=== PATIENT | male | born 1985 | race Caucasian/White ===

== ENCOUNTER 2021-09-21 09:08 | Emergency (ER) | payer OTHER, SELFPAY ==
[2021-09-21] VITALS (13 sets, daily range): BP systolic 103–137; BP diastolic 64–119; PULSE 74–96; RESP 14–31; TEMP 36.2; O2SAT 96–99
--- NOTE | ~2021-09-21 | XR_ITS ---
EXAMINATION: XR chest 2V DATE: 09/21/2021 09:54 INDICATION: Dizziness. TECHNIQUE: Frontal and lateral views of the chest were obtained. COMPARISON: Chest single view 06/24/2021 FINDINGS: The chest demonstrates clear lungs without pneumonia, pleural effusion, or pneumothorax. Th e heart size is normal. IMPRESSION: 1. No acute cardiopulmonary disease. Reviewed, dictated and finalized at location A. [employer]ENT[employer]
--- NOTE | 2021-09-21 09:17 | ECG_ITS ---
Measurements Intervals [place] Rate: 84 P: 31 LA: 145 QRS: 2 QRSD: 97 T: 1 QT: 365 QTc: 432 Interpretive Statements SINUS RHYTHM NO PREVIOUS ECG AVAILABLE FOR COMPARISON Electronically Signed On 09-21-2021 13:20:53 [employer] SAL[employer] by Susana Huerta M.D.
[2021-09-21 09:27] LABS: Basophils Absolute Auto 0.1 K/mm3 (0.0-0.1); Eosinophils Absolute Auto 0.4 K/mm3 (0-0.3); Eosinophils Percent Auto 4.7 % (0-4.4); Hemoglobin 14.5 g/dL (14.0-18.0); Immature Granulocyte Absolute 0.05 K/mm3 (0.00-0.031); Immature Granulocyte Percent A 0.5 % (0-0.5); Lymphocytes Absolute Auto 1.51 K/mm3 (0.9-3.2); Lymphocytes Percent Auto 16.1 % (18.3-44.2); Mean Corpuscular Hemoglobin 29.6 pg (26-34); Mean Corpuscular Volume 89.8 fl (80-100); Mean Platelet Volume 9.7 fl (7.4-10.4); Monocytes Absolute Auto 0.8 K/mm3 (0.1-0.6); Monocytes Percent Auto 8.9 % (2.6-8.5); Neutrophils Absolute Auto 6.4 K/mm3 (1.3-6.7); Neutrophils Percent Auto 68.8 % (45.5-73.1); Platelet Count Result 344 k/mm3 (150-375); Red Cell Distribution Width 12.7 % (11.5-14.5); White Blood Count 9.4 K/mm3 (4.5-10.0)
--- NOTE | 2021-09-21 09:29 | ED.DIZZY ---
HPI - Dizziness General Chief Complaint: Dizziness Stated Complaint: vertigo Time Seen by Provider: 09/21/21 09:11 Source: patient Mode of arrival: ambulatory Limitations: no limitations History of Present Illness HPI Narrative: This is a 36-year-old male that presents to the emergency department for intermittent episodes of dizziness today. Reports he feels very lightheaded like he could pass out. Associated with nausea and diaphoresis. Nothing seems to make the symptoms better or worse. He feels like his heart is racing when this happens. He does report similar episodes in the past. He has not taken anything for symptoms. Denies fever, chest pain, shortness of breath, vision changes, vomiting, numbness, or weakness. Related Data Home Medications Medication Instructions Recorded Confirmed fexofenadine [Felipa Allergy] 180 mg PO DAILY 06/18/19 06/18/19 fluoxetine [Prozac] 20 mg PO DAILY 06/18/19 06/18/19 Allergies Allergy/AdvReac Type Severity Reaction Status Date / Time No Known Allergies Allergy Verified 06/24/21 07:23 Review of Systems Review of Systems: CONSTITUTIONAL: Denies fever CARDIOVASCULAR: Denies chest pain or edema. RESPIRATORY: Denies dyspnea. GASTROINTESTINAL: Reports nausea. Denies vomiting NEUROLOGIC: Denies headache, numbness, or weakness. PSYCHIATRIC: Reports anxiety and depression. All systems reviewed & are unremarkable except as noted in HPI and below PMFSH Past Medical History Medical History (Updated 09/21/21 @ 12:18 by Leelee Mims PA-C) History of depression Social History Social History (Updated 06/24/21 @ 13:19 by Betsy Ortiz) Smoking status: Never smoker Exam Narrative: GENERAL: Well-appearing, well-nourished, and in no acute distress. HEAD: Normocephalic, atraumatic. EYES: PERRLA and EOMI. ENT: Nares clear, no rhinorrhea or epistaxis. Mucous membranes moist. Oropharynx without tonsillar hypertrophy exudate or other lesions. Bilateral TMs pearly kowalski non-bulging NECK: Supple. No adenopathy or masses. CHEST: Clear to auscultation. No respiratory distress. No wheezes rales or rhonchi HEART: Regular rate and rhythm. No murmur heard. Normal peripheral pulses. ABDOMEN: Soft, nontender, nondistended, normal active bowel sounds. EXTREMITIES: Normal range of motion. No edema. Strength equal in bilateral upper and lower extremities (5/5) SKIN: Warm, dry, no rash. NEURO: No focal deficits. Alert and oriented x3. Cranial nerves II through XII grossly intact. Normal [id number] PSYCH: Normal mood and affect Course Vital Signs Vital signs: Vital Signs Temperature 97.1 F L 09/21/21 09:13 Pulse Rate 74 09/21/21 09:13 Respiratory Rate 14 09/21/21 09:13 Blood Pressure 133/73 09/21/21 09:13 Pulse Oximetry 99 09/21/21 09:13 Temperature 97.1 F L 09/21/21 09:13 Pulse Rate 96 09/21/21 10:07 Respiratory Rate 23 H 09/21/21 10:01 Blood Pressure 103/64 09/21/21 10:07 Pulse Oximetry 98 09/21/21 10:01 MDM - Dizziness MDM Narrative Medical decision making narrative: Patient presents to the emergency department for episodes of lightheadedness today. He is afebrile and nontoxic-appearing. His vitals are stable. He is neurologically intact. CBC without concerning findings. Metabolic panel with elevation in blood glucose to 173. I did send a hemoglobin A1c which was elevated at 7.1. This to be a new diagnosis of diabetes for the patient. Chest x-ray without acute cardiopulmonary abnormality. EKG without concerning changes. She was hydrated and given antiemetic and meclizine with relief. I did attempt to reach his primary doctor, but was unable to. Patient will be started on Metformin and instructed to have close follow-up with his primary doctor. He was given warnings to return to the ER Lab Data Attestation: I reviewed the patient's lab results. Result diagrams: 09/21/21 09:22 09/21/21 09:22 Labs: Lab R
[2021-09-21] MEDS: MECLIZINE HCL 25 MG TABLET PO (09:37)
[2021-09-21] MEDS: SODIUM CHLORIDE 0.9% IV 500 ML 999 ML IV CONT (09:37)
[2021-09-21] MEDS: ONDANSETRON INJ 4 MG/2 ML VIAL IV PUSH (09:38)
[2021-09-21 09:46] LABS: Alanine Aminotransferase 44 U/L (4-50); Albumin Level 4.2 g/dL (3.5-5.1); Alkaline Phosphatase 76 U/L (38-126); Anion Gap 7 mmol/L (8-16); Aspartate Amino Transferase 37 U/L (17-59); Bilirubin,Total 0.3 mg/dL (0.2-1.3); Blood Urea Nitrogen 10 mg/dL (9-20); Calcium 8.6 mg/dL (8.4-10.2); Carbon Dioxide 29 mmol/L (22-30); Chloride 103 mmol/L (98-107); Estimated CRCL calculation 108 ml/min; Estimated Glomerular Filt Rate > 60; Glucose 173 mg/dL (65-110); Potassium 4.2 mmol/L (3.4-5.0); Sodium 139 mmol/L (137-145)
[2021-09-21 10:22] LABS: Hemoglobin A1C 7.1 % (<5.7)
== END 2021-09-21 12:28 | disposition home or self-care (01) ==
PROVIDERS: Physician Assistant; Emergency Provider Emergency Medicine; PCP Family Medicine
DX: R42 Dizziness and giddiness (principal); E11.9 Type 2 diabetes mellitus without complications; F32.A Depression, unspecified
CPT/HCPCS: 36415; 71046; 80053; 83036; 85025; 93005; 96361; 96374; 99284; A9270; J2405; J7040

== ENCOUNTER 2021-12-09 07:00 | Outpatient (CLI) | payer OTHER, SELFPAY ==
[2021-12-09 07:52] LABS: Creatinine Urine 273.86 mg/dL (40-278); MALB Creatinine Ratio 4.9 mg/g (0-30); Microalbumin Urine Random 13.6 mg/L
[2021-12-09 07:54] LABS: Hemoglobin A1C 6.3 % (<5.7)
== END 2021-12-09 07:01 | disposition home or self-care (01) ==
LOC: CHSLAB 07:02
PROVIDERS: PCP Family Medicine; Visit Provider Family Medicine
DX: E11.69 Type 2 diabetes mellitus with other specified complication (principal); E66.9 Obesity, unspecified
CPT/HCPCS: 36415; 82043; 83036